=== PATIENT | female | born 1990 | race African-American/Black ===

== ENCOUNTER 2016-08-29 08:23 | Emergency (ER) ==
[2016-08-29 09:02] LABS: URINE SOURCE CLEAN CATCH
[2016-08-29 09:05] LABS: BILIRUBIN URINE NEGATIVE (NEGATIVE); BLOOD URINE NEGATIVE (NEGATIVE); CLARITY CLEAR (CLEAR); COLOR YELLOW; GLUCOSE URINE NEGATIVE (NEGATIVE); LEUKOCYTES URINE TRACE (NEGATIVE); NITRITE URINE NEGATIVE (NEGATIVE); PROTEIN URINE NEGATIVE (NEGATIVE); UROBILINOGEN URINE NORMAL
[2016-08-29 09:26] LABS: URINE CULTURE PL NEEDED? YES; URINE EPITHELIAL CELLS <10 /HPF (<10); URINE WBC <10 /HPF (<10)
--- NOTE | 2016-08-29 10:10 | PROVIDER DOCUMENTATION ---
HPI-Abdominal Pain/GI Problem - General Chief Complaint: Cold Symptoms Stated Complaint: POSS STD Time Seen by Provider: 08/29/16 10:00 Source: patient Allergies/Adverse Reactions: Patient Allergies Allergy/AdvReac Type Severity Reaction Status Date / Time No Known Allergies Allergy Verified 01/27/15 18:42 Home Medications: Home Medication List Medication Instructions Recorded Confirmed Last Taken Type Benzonatate [Tessalon] 100 mg PO TID PRN PRN #21 capsule 01/27/15 Unknown Rx Naproxen 500 mg PO BID PRN #20 tablet. 01/27/15 Unknown Rx Sulfamethoxazole/Trimethoprim 1 each PO BID #14 tablet 01/27/15 Unknown Rx [Bactrim Ds Tablet] Amoxicillin 500 mg PO BID #14 capsule 08/29/16 Unknown Rx - History of Present Illness-ABD Nature of Presenting Problems: PATIENT STATES WOKE THIS MORNING WITH EPIGASTRIC ABD PAIN AND VOMITING. REPORTS VOMITED X2 THIS MORNING. STATES HAD + PREG TEST AT HOME YESTERDAY. + PREG TEST HERE IN ER WELL. CURRENTLY G3, P1, A1. STATES PAIN RESOLVED AFTER VOMITING. DENIES ANY PAIN AT THIS TIME. PATIENT DENIES ANY VAGINAL BLEEDING. LMP 2-17. Abdominal Pain Onset Location: reports: epigastric Pain Radiation: reports: no radiation Quality of Pain: reports: aching, cramping Severity in ED: reports: mild Onset/Duration: reports: this morning Timing: reports: improving Activities at Onset: reports: none Exposure to sick contacts?: No Modifying Factors: improves with: nothing Associated Symptoms: reports: vomiting Review of Systems - Adult - REVIEW OF SYSTEMS - ADULT Constitutional: reports: no symptoms reported Eyes: reports: no symptoms reported Ears, Nose, Mouth & Throat: reports: no symptoms reported Cardiovascular: reports: no symptoms reported Respiratory: reports: no symptoms reported Gastrointestinal: reports: see HPI Genitourinary: reports: frequency Musculoskeletal: reports: no symptoms reported Integumentary: reports: no symptoms reported Neurological: reports: no symptoms reported Psychiatric: reports: no symptoms reported Endocrine: reports: no symptoms reported Hematologic/Lymphatic: reports: no symptoms reported Past History - Adult - PAST MEDICAL HISTORY-ADULT Review of Records: reports: Nursing Assessment Review, Medications Reviewed, Social history reviewed & non-contributory. Major Childhood Illnesses: reports: denies history Other Conditions: reports: MRSA - PRIOR SURGERIES/PROCEDURES Surgical/Procedure History: reports: other (I&D) - IMMUNIZATION STATUS Childhood Immunizations: UTD Flu Vaccine: See Nurse Assessment Physical Exam-General - PHYSICAL EXAM-ADULT Initial Vital Signs Reviewed: Yes - CONSTITUTIONAL General Appearance: appears well, alert, no apparent distress - EYES Eyes: PERRL/EOMI - HEAD, EARS, NOSE, MOUTH & THROAT HENMT: normocephalic/atraumatic, moist mucous membranes - NECK Neck: full range of motion - RESPIRATORY Respiratory: lungs clear, normal breath sounds - CARDIOVASCULAR Cardiovascular: regular rate, rhythm - GASTROINTESTINAL (ABDOMEN) Abdominal Exam: normal bowel sounds, soft, tenderness (SUPRAPUBIC TENDERNESS) - GENITOURINARY Female Genitalia/Pelvic Exam: deferred Rectal Exam: deferred - LYMPHATIC Lymphatic: no adenopathy - MUSCULOSKELETAL Extremity: normal range of motion, normal gait - SKIN Integumentary: normal color, normal turgor, warm/dry - NEUROLOGIC Neurologic: grossly normal, no motor/sensory deficits - PSYCHIATRIC Psych/Mental Status: normal mood/affect, normal thought content, normal thought process, oriented x 3 Progress - PLAN OF CARE/RESULTS Progress/Plan/Lab Results: Laboratory Tests 08/29/16 08/29/16 08:50 12:16 Ser , Semi-Qnt 188.2 Urine Source CLEAN CATCH Urine Color YELLOW Urine Clarity CLEAR Urine pH 5.0 Ur Specific [place] 1.020 Urine Protein NEGATIVE Urine Ketones NEGATIVE Urine Blood NEGATIVE Urine Nitrite NEGATIVE Urine Bilirubin NEGATIVE Urine Urobilinogen NORMAL Urine Microscopic RBC Not Reportable Urine WBC TRACE A Urine Microscopic WBC <10 Ur Epithelial Cells <10 Urine Bacteria 1+ Urine Glucose NEGATIVE Orders Category Date Time Status ED: Urine Bedside ORDERED Care 08/29/16 08:39 Active US PELVIC NON-BRACELET MAKER NOVELTY COMPLETE [US] Stat Exams 08/29/16 10:08 Draft US TRANSVAGINAL NON-OB [US] Routine Exams 08/29/16 10:38 Taken QUANT TEST Stat Lab 08/29/16 12:[address] W/POSS RFLX CULT [URINALYSIS] Stat Lab 08/29/16 08:50 Completed URINE CULTURE [RM] Routine Lab 08/29/16 09:26 Ordered Vital Signs - 24 hr 08/29/16 08:31 Temperature 98 F Pulse Rate 82 Respiratory 20 Rate Blood Pressure 127/85 O2 Sat by Pulse 98 Oximetry - REASSESSMENT Reassessment #1 Time Reassessed: 12:55 Status: unchanged (AWAKE/ALERT. RESPIRATIONS NONLABORED. SKIN PINK W/D. DENIES ANY ABD PAIN, VAGINAL BLEEDING OR NAUSEA AT THIS TIME. VOICES UNDERSTANDING OF U/S SHOWS NO IUP, BUT HCG RESULTS ARE INDICATING VERY EARLY . VOICES UNDERSTANDING TO FOLLOW UP WITH HOPPER ATTENDANT STANISLAW FOR FURTHER CARE.) - ULTRASOUND (By Radiology) 1 US Study: Pelvic Impression: See EMR Report (NO IDENTIFIED GESTATION, MINIMAL FREE FLUID, FIBROID UTERUS, 1.6CM LEFT OVARAIN HYPOECHOIC COMPLICATED CYST, PER DR. RAMIREZ REPORT.) Departure - Departure Time of Disposition Order: 13:00 DIAGNOSIS: Urinary tract infection, Disposition: HOME 01 Certified Medical Emergency: Emergent Condition: Good Additional Instructions: START VITAMINS TODAY AND TAKE DAILY DIRECTED. RETURN TO ER FOR ANY RETURNING ABD PAIN, OR IF YOU HAVE ANY VAGINAL BLEEDING IF YOU ARE UNABLE TO SEE HOPPER ATTENDANT PHYSICIAN. Prescriptions: Amoxicillin 500 mg PO BID #14 capsule Referrals: Max Kenny MD [STAFF PHYSICIAN] - (FOLLOW UP WITH DR. KENNY OR OTHER OB /LAST INSERTER PROVIDER OF YOUR CHOICE FOR FURTHER CARE. CONTACT PROVIDER SOON POSSIBLE TO SCHEDULE APPOINTMENT. ) Forms: Return to School/Parent Work Instructions: Amoxicillin capsules or tablets, Urinary Tract Infection, Easy-to -Read Attestation - Physician/ AMAIRANI Attestation Patient care was provided by Advanced Practice Provider:: Yes Advanced Practice Provider:: Edu Burnett Advanced Practice Provider documentation review:: The Mid-level provider documentation, treatment plan and medical decision making was reviewed by the physician who agrees with all treatment and medical decision making by the MLP.
--- NOTE | 2016-08-29 12:43 | Diag Imaging Result Document ---
PROCEDURE NAME: US PELVIC NON-SEAL DELIVERY VEHICLE OFFICER COMPLETE - 08/29/2016 PELVIC ULTRASOUND, TRANSABDOMINAL AND ENDOVAGINAL SCAN: FINDINGS: There are multiple hypoechoic areas within the myometrium which are probably leiomyomata. There is also a pedunculated calcified leiomyoma over the fundus of the uterus, the latter measuring 1.8 cm in greatest dimension. There is a large calcified leiomyoma in the mid body measuring 4.3 cm in greatest dimension. The endometrial stripe is 1.5 cm in thickness. The left ovary demonstrates a hypoechoic region measuring 1.6 cm in greatest dimension. Neither ovary is enlarged. There is a small amount of free fluid in the cul-de-sac. IMPRESSION: 1. Fibroid uterus. 2. Nonspecific hypoechoic lesion in the left ovary. This may represent a complicated cyst. 3. Nonspecific free pelvic fluid.
[2016-08-29 14:30] VITALS: BP 118/69
== END 2016-08-29 14:29 | disposition home or self-care (01) ==
LOC: P.ED 08:23
DX: O23.40 Unspecified infection of urinary tract in pregnancy, unspecified trimester (principal); O26.899 Other specified pregnancy related conditions, unspecified trimester; R10.13 Epigastric pain; R35.0 Frequency of micturition; R10.819 Abdominal tenderness, unspecified site; O21.9 Vomiting of pregnancy, unspecified; Z3A.00 Weeks of gestation of pregnancy not specified; Z86.14 Personal history of Methicillin resistant Staphylococcus aureus infection
CPT/HCPCS: 36415; 76830; 76856; 81001; 84702; 87088